=== PATIENT | male | born 1995 | race Caucasian/White ===

== ENCOUNTER 2018-02-28 12:59 | Emergency (ER) | payer OTHER, MEDICAID, SELFPAY ==
--- NOTE | 2018-02-28 13:06 | ED.URI ---
HPI - URI/Sore Throat <Nery Hernandez PA-C - Last Filed: 02/28/18 14:29> General Chief Complaint: Upper Respiratory Symptoms Stated Complaint: Had cold and cough for 2 weeks Time Seen by Provider: 02/28/18 13:05 Source: patient Mode of arrival: ambulatory Limitations: no limitations History of Present Illness HPI Narrative: This healthy 22-year-old male complains of upper respiratory symptoms for 2 weeks. He states that he had 1 day of GI upset and vomiting, then onset of cough, congestion, and sinus headaches. He states that he thought he was getting a little bit better last week, return to work, but then symptoms started to worsen again, with increasing productive brownish sputum and more frontal headaches. He has sore throat when he awakens in the a.m., with a lot of postnasal drip. He denies any tooth pain or earache, but he did feel dizzy and congested when he awoke this morning. He has had some chills, no known fevers, known sweats. He denies dyspnea or wheeze. He denies any recent travel or known exposures. No other complaints on systems review. Related Data Previous Rx's Medication Instructions Recorded amoxicillin-pot clavulanate 1 tab PO Q12H #14 tab 02/28/18 [Augmentin] Allergies Allergy/AdvReac Type Severity Reaction Status Date / Time No Known Drug Allergies Allergy Verified 02/28/18 13:10 Review of Systems <Nery Hernandez PA-C - Last Filed: 02/28/18 14:29> Review of Systems All systems reviewed & are unremarkable except as noted in HPI and below PFSH <Nery Hernandez PA-C - Last Filed: 02/28/18 14:29> Comment: denies etoh or street drugs Exam <Nery Hernandez PA-C - Last Filed: 02/28/18 14:29> Narrative Exam Narrative: GENERAL APPEARANCE: Patient sitting comfortably, in no distress. HEAD: L>R frontal TTP, no maxillary tenderness EYES: PERRL, EOMI. EARS: Normal auditory canals, TMS intact with normal light reflexes. NOSE: edematous nasal mucosa ORAL CAVITY: Normal oropharynx. THROAT: mild erythema, no exudate NECK/THYROID: Neck supple, full range of motion, few anterior cervical nodes LUNGS: Clear to auscultation bilaterally, rare cough on exam. HEART: RRR without murmur, nl S1, S2, no S3 or S4. DERM: no exanthem Initial Vital Signs Initial Vital Signs: Vital Signs Temperature 97.5 F L 02/28/18 13:10 Pulse Rate 60 02/28/18 13:10 Respiratory Rate 15 02/28/18 13:10 Blood Pressure 115/74 02/28/18 13:10 Pulse Oximetry 100 02/28/18 13:10 <Elayne Henderson DO - Last Filed: 03/04/18 03:49> Initial Vital Signs Initial Vital Signs: Vital Signs Temperature 97.5 F L 02/28/18 13:10 Pulse Rate 60 02/28/18 13:10 Respiratory Rate 15 02/28/18 13:10 Blood Pressure 115/74 02/28/18 13:10 Pulse Oximetry 100 02/28/18 13:10 Course <Nery Hernandez PA-C - Last Filed: 02/28/18 14:29> Vital Signs - 8 hr 02/28/18 13:10 Temperature 97.5 F L Pulse Rate 60 Respiratory Rate 15 Blood Pressure 115/74 Pulse Oximetry 100 <Elayne Henderson DO - Last Filed: 03/04/18 03:49> Vital Signs - 8 hr 02/28/18 13:10 Temperature 97.5 F L Pulse Rate 60 Respiratory Rate 15 Blood Pressure 115/74 Pulse Oximetry 100 Discharge Plan Departure Patient Disposition: Home Clinical Impression: Sinusitis Discharge Date/Time: 02/28/18 13:44 Interventions: ED Discharge Assessment Last Done: 02/28/18 13:44 Instructions: DI for Sinusitis Activity Restrictions/Additional Instructions: Please return as we talked about if you have any acutely worsening of symptoms. You can try [id number] Zyrtec (cetirizine), 10 mg daily to help with sinus drainage, and also pseudoephedrine, to help with sinus pressure and headache. These are available [id number], you can ask the pharmacist for them. It is okay to use lozenges and [id number] cough suppressants if you wish as well. I have sent in a prescription for an antibiotic to your pharmacy as well to treat the sinus infection. You should follow up if you are not improving by next week. Please call your insurance for referral to a primary care provider, and you can also be seen at an urgent care or here of course if needed Prescriptions: New amoxicillin-pot clavulanate [Augmentin] 875-125 mg tablet 1 tab PO Q12H Qty: 14 RF: 0 <Elayne Henderson DO - Last Filed: 03/04/18 03:49> [facility] Attending [place] Attestation: I was immediately available in the department for consultation. Documentation has been reviewed. I agree with assessment and plan.
[2018-02-28 13:10] VITALS: BP 115/74; PULSE 60; RESP 15; TEMP 36.4; O2SAT 100; BMI 20.3
--- NOTE | 2018-03-02 17:09 | PC.NURSE ---
Completed follow up phone call. Pt reports continuing symptoms as he had during his visit. Encouraged to continue taking his antibiotics and to follow up with PCP. Pt had no questions about discharge instructions. No stated improvements from visit.
== END 2018-02-28 13:44 | disposition home or self-care (01) ==
PROVIDERS: Emergency Provider Internal Medicine
DX: J32.9 Chronic sinusitis, unspecified (principal)
CPT/HCPCS: 99282

== ENCOUNTER → 2022-11-17 13:14 | Outpatient (CLI) | payer OTHER, SELFPAY ==
[2022-11-17 13:45] LABS: BUN Creatinine Ratio 11.2 (6-22); Blood Urea Nitrogen 12 mg/dL (9-20); Calcium 9.5 mg/dL (8.4-10.2); Carbon Dioxide 26 mmol/L (22-32); Chloride 103 mmol/L (98-107); Estimated Glomerular Filt Rate > 60 mL/min (>60); Glucose 84 mg/dL (70-100); HEMOLYSIS < 15 (0-50); Potassium 3.9 mmol/L (3.4-5.1); Sodium 139 mmol/L (137-145)
[2022-11-17 13:47] LABS: Cholesterol 192 mg/dL (140-199); HDL Cholesterol 35 mg/dL (40-60); LDL Cholesterol Calculated 135 mg/dL (<100); Triglycerides 110 mg/dL (35-150)
== END ==
PROVIDERS: Physician Assistant; Referring Provider Urology; Visit Provider Urology
DX: Z02.89 Encounter for other administrative examinations (principal)
CPT/HCPCS: 36415; 80048; 80061